=== PATIENT | female | born 2000 | race Caucasian/White ===

== ENCOUNTER → 2022-11-02 | Outpatient (CLI) | payer OTHER | LOC: M RAD 13:55 | PROVIDERS: ATTEND Registered Nurse | DX: Z34.92 Encounter for supervision of normal pregnancy, unspecified, second trimester (principal); Z3A.25 25 weeks gestation of pregnancy ==

== ENCOUNTER 2023-02-21 07:42 | Inpatient (IN) | payer OTHER ==
[~2023-02-21] VITALS: Ht 170.2 cm; Wt 130.7 kg
[2023-02-21] VITALS (42 sets, daily range): BP systolic 103–163; BP diastolic 55–91
[2023-02-21] MEDS ORDERED: PRENTAB9 PO (07:59)
[2023-02-21] MEDS ORDERED: SYNT50TA PO (07:59)
[2023-02-21] MEDS ORDERED: HOME MED LIST COMPLETE! XX SCH (08:00)
[2023-02-21] MEDS ORDERED: OXYTOCIN DRIP 30 UNITS in IV 1 EA IV PRN (09:40)
[2023-02-21] MEDS ORDERED: CARBOPROST TROMETHAMINE 250 MCG/ML AMP IM PRN (09:40)
[2023-02-21] MEDS ORDERED: TRANEXAMIC ACID INJection 1,000 MG in NS 100 ML IV PRN (09:40)
[2023-02-21] MEDS ORDERED: LIDOCAINE 1% MDV 20ML VIAL INFIL PRN (09:40)
[2023-02-21] MEDS ORDERED: LACTATED RINGER'S 1000 ML IV PRN (09:40)
[2023-02-21] MEDS ORDERED: METHYLERGONOVINE MALEATE 0.2MG/ML 1ML VIAL IM PRN (09:40)
[2023-02-21] MEDS ORDERED: OXYTOCIN DRIP 30 UNITS in IV 1 EA IV SCH (10:05)
[2023-02-21] MEDS: LR 1,000 ML IV SCH ×2 (10:38→15:14)
[2023-02-21 10:57] LABS: HEMATOCRIT 35.9 % (36.0-47.0); MEAN CORPUSCULAR HEMOGLOBIN 30.5 pg (27.0-33.0); MEAN CORPUSCULAR HGB CONC 33.4 g/dl (32.0-36.5); MEAN CORPUSCULAR VOLUME 91.3 fl (80.0-96.0); PLATELET COUNT, AUTOMATED 196 10^3/uL (150-450); RED BLOOD COUNT 3.93 10^6/uL (4.00-5.40); WHITE BLOOD COUNT 10.3 10^3/uL (4.0-10.0)
[2023-02-21] MEDS ORDERED: SLF 3 ML SYR IV PRN (18:00)
[2023-02-21] MEDS ORDERED: diphenhydrAMINE 50MG/ML VIAL IV PRN (18:10)
[2023-02-21] MEDS ORDERED: LR 500 ML IV PRN (18:10)
[2023-02-21] MEDS ORDERED: ePHEDrine SULFATE 25 MG/5 ML(5MG/ML) SYRINGE IVP PRN (18:10)
[2023-02-21] MEDS ORDERED: NALOXONE INJ 0.4MG/1ML VIAL IV PRN (18:10)
[2023-02-21] MEDS ORDERED: ONDANSETRON 4MG 2ML VIAL IV PRN (18:10)
[2023-02-21] MEDS ORDERED: EPIDURAL/PCA KEYS XX PRN (18:10)
[2023-02-21] MEDS: FENTANYL/ROPIVACAINE/NACL BAG 100 ML EPIDURAL SCH (18:53)
[2023-02-21] MEDS ORDERED: SLF 3 ML SYR IV SCH (22:00)
[2023-02-22] VITALS (23 sets, daily range): BP systolic 96–171; BP diastolic 50–100
[2023-02-22] MEDS: FENTANYL/ROPIVACAINE/NACL BAG 100 ML EPIDURAL SCH (02:16)
[2023-02-22 06:45] LABS: CORD GAS ABE V -0.8; CORD GAS HCO3 V 22.9 MMOL/L; CORD GAS PCO2 V 35.6 mmHg; CORD GAS PH V 7.427 UNITS; CORD GAS PO2 V 34.4 mmHg; CORD GAS SBC V 23.4 MMOL/L
[2023-02-22 06:47] LABS: CORD GAS HCO3 A 23.1 MMOL/L; CORD GAS PCO2 A 48.8 mmHg; CORD GAS PH A 7.293 UNITS; CORD GAS PO2 A 45.2 mmHg; CORD GAS SBC A 20.9 MMOL/L; CORD GAS TCO2 A 24.6 MMOL/L
[2023-02-22] MEDS ORDERED: MOM 30ML SUSPENSION UDC PO PRN (07:15)
[2023-02-22] MEDS ORDERED: RHOGAM 300MCG (1500IU) INJ IM SCH (07:15)
[2023-02-22] MEDS ORDERED: METHYLERGONOVINE MALEATE 0.2 MG TAB PO PRN (07:15)
[2023-02-22] MEDS ORDERED: DOCUSATE SODIUM 100MG CAPSULE PO PRN (07:15)
[2023-02-22] MEDS ORDERED: ACETAMINOPHEN 500 MG TAB PO PRN (07:15)
[2023-02-22] MEDS ORDERED: DIBUCAINE 1% OINTMENT 30GM TOP PRN (07:15)
[2023-02-22] MEDS ORDERED: OXYTOCIN DRIP 30 UNITS in IV 1 EA IV SCH ×4 (07:15)
[2023-02-22] MEDS ORDERED: ONDANSETRON 4MG 2ML VIAL IV PRN (07:15)
[2023-02-22] MEDS ORDERED: ACETAMINOPHEN TAB 650MG DOSE (2X325MG) PO PRN (07:15)
[2023-02-22] MEDS ORDERED: PRENATAL VITAMINS CHEWABLE TABLET PO SCH (09:00)
[2023-02-22] MEDS: IBUPROFEN 800 MG TAB PO PRN ×2 (09:45→20:17)
[2023-02-22] MEDS: PRENATAL VITAMINS CHEWABLE TABLET PO SCH (09:45)
[2023-02-22] MEDS: LEVOTHYROXINE 50MCG TABLET (0.05MG) PO SCH (10:42)
[2023-02-23 05:48] VITALS: BP 120/60
[2023-02-23] MEDS: LEVOTHYROXINE 50MCG TABLET (0.05MG) PO SCH (06:02)
[2023-02-23] MEDS: PRENATAL VITAMINS CHEWABLE TABLET PO SCH (08:28)
[2023-02-23] MEDS: IBUPROFEN 600MG TAB PO PRN ×2 (08:28→15:09)
[2023-02-24] MEDS ORDERED: MEASLES,MUMPS,RUBELLA VACCINE INJ (MMR-II) SC.IMMUN ONE (09:00)
== END 2023-02-23 15:46 | disposition home or self-care (01) | DRG 807 ==
LOC: M LDI 07:42 → M OBS 02-22 09:30
PROVIDERS: ADMIT Registered Nurse; ATTEND Registered Nurse
PROC: 3E033VJ Introduction of Other Hormone into Peripheral Vein, Percutaneous Approach (ICD-10-PCS; 2023-02-21)
PROC: 10E0XZZ Delivery of Products of Conception, External Approach (ICD-10-PCS; principal; 2023-02-22)
DX: O48.0 Post-term pregnancy (principal); Z37.0 Single live birth; Z3A.41 41 weeks gestation of pregnancy; Z91.010 Allergy to peanuts; E03.9 Hypothyroidism, unspecified; E66.9 Obesity, unspecified; O99.284 Endocrine, nutritional and metabolic diseases complicating childbirth; O99.214 Obesity complicating childbirth